=== PATIENT | female | born 2000 | race Caucasian/White ===

== ENCOUNTER 2021-10-13 13:48 | Emergency (ER) | payer BC, SELFPAY ==
[2021-10-13 14:18] VITALS: BP 105/64; PULSE 108; RESP 16; TEMP 36.9; O2SAT 98
--- NOTE | 2021-10-13 16:26 | PC.NURSE ---
1400 PT LEFT SHORTLY AFTER SIGNING IN.
== END 2021-10-13 16:26 | disposition left against medical advice (07) ==
PROVIDERS: Emergency Provider Internal Medicine Hematology & Oncology; PCP Pediatrics
DX: Z53.21 Procedure and treatment not carried out due to patient leaving prior to being seen by health care provider (principal)
CPT/HCPCS: 99199

== ENCOUNTER 2025-10-05 14:04 | Emergency (ER) | payer OTHER, SELFPAY ==
[2025-10-05 14:10] VITALS: BP 99/71; PULSE 90; RESP 18; TEMP 36.4; O2SAT 100
--- NOTE | 2025-10-05 16:30 | ED.FEMALEGU ---
HPI - Female Genitourinary General Chief complaint: Urogenital-Female Stated complaint: discharge from private area Time Seen by Provider: 10/05/25 14:20 Source: patient and RN notes reviewed Mode of arrival: ambulatory Limitations: no limitations History of Present Illness HPI Narrative: 25-year-old female patient presents today complaining of a 2 month history of white vaginal discharge and a 2 day history of external itching and irritation. Denies urinary symptoms, fever, abdominal pain. No OTC treatment prior to arrival. Patient does have an OBGYN but has not followed up. Patient is not really concerned about STIs, but would like to be tested. Related Data Allergies Allergy/AdvReac Type Severity Reaction Status Date / Time No Known Allergies Allergy Verified 10/05/25 14:06 [facility] Comments At time of signature, I have reviewed and agree with nursing past medical, surgical, social and family history unless otherwise noted. Please see nursing chart for further information. There is no relevant family history pertinent to the presenting complaint Exam Narrative: GENERAL: Well-appearing, well-nourished, and in no acute distress. HEAD: Normocephalic, atraumatic. EYES: EOMI. No redness or drainage. Conjunctivae normal. ENT: Mucous membranes pink and moist. NECK: Normal AROM. CHEST: No respiratory distress. : deferred EXTREMITIES: Normal range of motion. No edema. SKIN: Warm, dry, no rash. Capillary refill normal. Normal skin turgor. NEURO: No focal deficits. Alert and oriented x3. Gait steady. PSYCH: Normal affect. No signs of depression or anxiety. Course Course Level of Care: Express Care Visit Vital Signs Vital signs: Vital Signs Temperature 97.5 F L 10/05/25 14:10 Pulse Rate 90 10/05/25 14:10 Respiratory Rate 18 10/05/25 14:10 Blood Pressure 99/71 L 10/05/25 14:10 Pulse Oximetry 100 10/05/25 14:10 Oxygen Delivery Room Air 10/05/25 14:10 Temperature 97.5 F L 10/05/25 14:10 Pulse Rate 90 10/05/25 14:10 Respiratory Rate 18 10/05/25 14:10 Blood Pressure 99/71 L 10/05/25 14:10 Pulse Oximetry 100 10/05/25 14:10 Oxygen Delivery Room Air 10/05/25 14:10 Reviewed MDM MDM Narrative Medical decision making narrative: 25-year-old female patient presents today complaining of a 2 month history of white vaginal discharge and a 2 day history of external itching and irritation. Denies urinary symptoms, fever, abdominal pain. No OTC treatment prior to arrival. Patient does have an OBGYN but has not followed up. Patient is not really concerned about STIs, but would like to be tested. Normal exam. exam deferred. Patient will self swab for bacterial vaginosis time yeast. Urine sample obtained for gonorrhea, chlamydia, Trichomonas. Patient declines prophylactic antibiotics. Will prescribe some fluconazole as this seems like the likely etiology of her symptoms. Patient agrees with plan. Vital signs stable. Anticipatory guidance given. Differential Diagnosis Differential Diagnosis: Bacterial vaginosis, vulvovaginitis, gonorrhea, chlamydia, Trichomonas Critical Care Time Critical Care Time Critical Care Time: No Discharge Plan Discharge Clinical Impression: Vaginal discharge Patient Disposition: Home Condition: Stable Additional Instructions: Take the fluconazole as prescribed. We have collected swabs and urine to test you for yeast, bacterial vaginosis, gonorrhea, chlamydia, and Trichomonas. You will be notified of any positive results, and appropriate antibiotics will be called in for you at that time. If you are positive for gonorrhea, you may need to return for an injection of antibiotics. Follow-up with your OBGYN if symptoms worsen. Patient Language: Kyrgyz Prescriptions: New fluconazole 150 mg tablet 150 mg PO Q3D Qty: 2 0RF Follow-up/Referrals: PHYSICIAN,GAME MANAGER [Primary Care Provider, Internal Medicine] Time of Disposition: 14:31
[2025-10-05 19:26] LABS: Trichomonas Vag PCR NOT DETECTED (NOT DETECTE)
== END 2025-10-05 14:40 | disposition home or self-care (01) ==
PROVIDERS: Emergency Provider Nurse Practitioner
DX: N89.8 Other specified noninflammatory disorders of vagina (principal); Z11.3 Encounter for screening for infections with a predominantly sexual mode of transmission
CPT/HCPCS: 87070; 87491; 87591; 87661; 87798; 99203; G0463